=== PATIENT | male | born 1970 | race African-American/Black ===

== ENCOUNTER 2019-03-28 07:02 | Emergency (ER) | payer SELFPAY ==
[~2019-03-28] VITALS: Ht 180.3 cm; Wt 108.9 kg
[2019-03-28] MEDS ORDERED: SODIUM CHLORIDE 0.9% 1,000 ML IV ONE (07:54)
[2019-03-28] MEDS ORDERED: ASPirin 81 mg TAB PO ONE (08:00)
[2019-03-28 08:02] LABS: Basophils # (auto) 0.1 uL; Basophils % (auto) 0.8 % (0.0-2.0); Eosinophils # (auto) 0.2 uL; Eosinophils % (auto) 2.6 % (0.0-7.0); Hematocrit 44.3 % (41.0-53.0); Hemoglobin 15.3 g/dL (13.5-17.5); Lymphocytes # (auto) 1.7 uL; Lymphocytes % (auto) 25.4 % (10.0-50.0); Mean Corpuscular Hemoglobin 31.4 pg (28.0-32.0); Mean Corpuscular Hgb Conc. 34.6 g/dL (32.0-36.0); Mean Corpuscular Volume 90.8 fL (80.0-100.0); Monocytes # (auto) 0.6 uL; Monocytes % (auto) 8.3 % (0.0-12.0); Neutrophils # (auto) 4.3 uL; Neutrophils % (auto) 62.9 % (37.0-80.0); Nucleated Red Blood Cells % 0.1 %; Platelet Count (auto) 296 10^3/uL (140-450); Red Blood Cells 4.88 10^6/uL (4.5-5.90); Red Cell Distribution Width 14.2 % (11.8-14.3); White Blood Cell 6.9 10^3/uL (4.4-10.8)
[2019-03-28 08:18] LABS: Alanine Aminotransferase 30 U/L (16-61); Albumin 3.9 g/dL (3.4-5.0); Anion Gap 7 (5-15); Aspartate Aminotransferase 56 U/L (15-37); BUN/Creatinine Ratio 13.1; Blood Urea Nitrogen 13 mg/dL (7-18); Carbon Dioxide 21 mmol/L (21-32); Chloride 110 mmol/L (98-107); GFR African American 102 mL/min; GFR Non-African American 85 mL/min; Glucose 106 mg/dL (74-106); Potassium 4.1 mmol/L (3.5-5.1); Sodium 138 mmol/L (136-145)
[2019-03-28 08:22] LABS: Alkaline Phosphatase 61 U/L (45-117); Bilirubin, Total 0.6 mg/dL (0.2-1.0); Total Protein 7.9 g/dL (6.4-8.2)
[2019-03-28 08:30] LABS: INR 0.93 (0.9-1.15); Partial Thromboplastin Time 29.2 sec (23.64-32.05)
[2019-03-28] MEDS ORDERED: ACETAMINOPHEN 500 MG TAB PO PRN (10:45)
[2019-03-28] MEDS ORDERED: hydrALAZINE HCL 20 MG/ML VL IV PRN (10:45)
[2019-03-28] MEDS ORDERED: HYDROcodone-ACET 5/325MG TAB PO PRN (10:45)
[2019-03-28] MEDS ORDERED: MORPHINE SULF INJ 2 MG/ML SYRINGE 1ML IV PRN ×2 (10:45)
[2019-03-28] MEDS ORDERED: ONDANSETRON HCL 4 MG/2 ML VIAL IV PRN (10:45)
[2019-03-28] MEDS ORDERED: NITROGLYCERIN 0.4 MG SL TAB SL PRN (10:45)
[2019-03-28 11:00] VITALS: BP 128/90
[2019-03-28] MEDS ORDERED: METOPROLOL TARTRATE 25 MG TAB PO ONE (11:15)
[2019-03-28] MEDS ORDERED: LISINOPRIL 10 MG TAB PO ONE (11:15)
[2019-03-28] MEDS ORDERED: METOPROLOL TARTRATE 25 MG TAB PO SCH (22:00)
[2019-03-28] MEDS ORDERED: ATORVASTATIN 20 MG TAB PO SCH (22:00)
[2019-03-29] MEDS ORDERED: LISINOPRIL 10 MG TAB PO SCH (10:00)
[2019-03-29] MEDS ORDERED: ASPirin-EC 81 mg tab PO SCH (10:00)
[2019-03-29] MEDS ORDERED: FAMOTIDINE 20 MG TAB PO SCH (10:00)
== END 2019-03-28 11:11 | disposition left against medical advice (07) ==
LOC: EDBD 07:02 → ER 07:08
DX: R07.89 Other chest pain (principal); I10 Essential (primary) hypertension; E78.5 Hyperlipidemia, unspecified; F17.210 Nicotine dependence, cigarettes, uncomplicated; F12.10 Cannabis abuse, uncomplicated; I25.2 Old myocardial infarction; Z86.73 Personal history of transient ischemic attack (TIA), and cerebral infarction without residual deficits; Z53.29 Procedure and treatment not carried out because of patient's decision for other reasons; Z90.49 Acquired absence of other specified parts of digestive tract
CPT/HCPCS: 36415; 71046; 80053; 83735; 84443; 84484; 85025; 85610; 85730; 86141; 94761; 96360; 96361; 99284; J7030